=== PATIENT | female | born 1990 | race Caucasian/White ===

== ENCOUNTER 2024-06-21 13:51 | Emergency (ER) | payer MEDICARE, MEDICAID ==
[~2024-06-21] VITALS: Ht 162.6 cm; Wt 57.0 kg
[2024-06-21 13:57] VITALS: PULSE 94; RESP 15; O2SAT 96
[2024-06-21] MEDS ORDERED: DIF150T PO (14:31)
[2024-06-21] MEDS ORDERED: CLOT30CR19 TOP (14:31)
== END 2024-06-21 14:38 | disposition home or self-care (01) ==
LOC: ER 13:52
DX: B35.6 Tinea cruris (principal); B37.31 Acute candidiasis of vulva and vagina; Z88.5 Allergy status to narcotic agent; Z88.8 Allergy status to other drugs, medicaments and biological substances
CPT/HCPCS: 99283

== ENCOUNTER 2024-09-11 09:27 | Emergency (ER) | payer MEDICARE, MEDICAID ==
[~2024-09-11] VITALS: Ht 157.5 cm; Wt 52.0 kg
[~2024-09-11 09:27] MED LIST: CLOT30CR19 TOP
--- NOTE | 2024-09-11 10:27 | RADIOLOGY REPORT ---
CLINICAL INDICATION: Antalgic gait TECHNIQUE: 3 radiographic views of the right ankle were obtained. Comparison: None FINDINGS/IMPRESSION: There is no evidence of acute fracture or dislocation. The visualized joint space is well maintained. The alignment is anatomical. There is no radiopaque foreign body.
--- NOTE | 2024-09-11 10:28 | RADIOLOGY REPORT ---
CLINICAL INDICATION: FOOT PAIN TECHNIQUE: 3 radiographic views of the right foot were obtained. Comparison: None FINDINGS/IMPRESSION: There is no evidence of acute fracture or dislocation. The visualized joint space is well maintained. The alignment is anatomical. There is no radiopaque foreign body.
[2024-09-11] MEDS: acetaminophen 325mg/10.15ml oral unit dose solution PO ONE (10:43)
[2024-09-11] MEDS ORDERED: IBUP-1984 PO (11:09)
--- NOTE | 2024-09-11 11:11 | Physician Documentation ---
History of Present Illness General Chief Complaint: Ankle pain Stated Complaint: ANKLE PAIN Time Seen by MD: 09:37 History of Present Illness Initial Comments Kaya is an autistic 34-year-old female brought in by staff for evaluation of a suspected right ankle foot injury. She has was noted to have an antalgic gait and a little distress with mild swelling. No witnessed injury. Medication Reconciliation Allergies: Coded Allergies: clonidine (Verified Allergy, Unknown, 06/21/24) hydrocodone (Verified Allergy, Unknown, 06/21/24) levetiracetam (Verified Allergy, Unknown, 06/21/24) Scheduled Clotrimazole (Clotrimazole), 1 APPLIC TOP Q12H Ibuprofen* (Motrin*), 400 MG PO Q8H Review of Systems Constitutional: Denies: fever Physical Exam Physical Exam Vital Signs: RN Vital Signs have been reviewed: Yes, Heart Rate: 84, Respir atory Rate: 17, Pulse Oximetry: 96, Weight: 52.000 Oxygen Flow Rate: 0 General Appearance: alert, WD/WN, mild distress Head: normal inspection Face: normal inspection Pupils/EOM/Fundus: PERRLA Nose: normal inspection Respiratory: no respiratory distress Chest: accessory muscle use Cardiovascular: regular rate, rhythm Extremities: edema; No: calf tenderness Neurologic: oriented x4, stone polisher II-XII nml as tested Motor / Sensory: no motor deficit Psychiatric: normal mood/affect Skin: normal color, warm/dry Progress Results/Orders Results/Orders Orders - NAHID EDWARD PAC Ankle, Complete(3vw Min) (09/11/24 ) Completed Orders - NAHID EDWARD PAC Ankle, Complete(3vw Min) (09/11/24 ) Acetaminophen Oral Solution (Tylenol, Ch (09/11/24 09:55) Vital Signs 09/11/24 09/11/24 09:32 11:47 Pulse 84 85 Resp 17 15 B/P (MAP) Pulse Ox 96 97 O2 Flow Rate 0 Medical Decision Making Differential Diagnosis Patti is a 34-year-old female with autism and believed to injured her right ankle. There is mild swelling. She had screening x-rays obtained of the ankle and foot which are reassuring for no fracture or dislocations. Recommendations are for rice therapy. Rest ice compression elevation. Repeated x-rays in 7-10 days reasonable. No clinical suspicion for migratory arthralgias, gout or septic arthritis Safely discharged in the emergency department. Departure Disposition: HOME / SELF CARE / HOMELESS Impression: Primary Impression: Sprain of ankle Qualified Codes: S93.401A - Sprain of unspecified ligament of right ankle, initial encounter Condition: Stable Discharge Instructions: Ankle Pain Additional Instructions: Today in the emergency department x-rays were obtained of the right ankle and right foot which were reassuring for no fracture or dislocation. Please provide Tylenol and/or ibuprofen consider applying an ankle brace and events Kaya's activities as tolerated. Make follow up appointment with the physician and/or return if symptoms worsen. Thank you for visiting emergency department [facility]. Referrals: NO PRIMARY CARE PROVIDER (PCP) Prescriptions Ibuprofen* (Motrin*) 400 Mg Tablet 400 MG PO Q8H, #20 TAB Prov: NAHID EDWARD 09/11/24 Education Educated: Patient Educated regarding: diagnosis, treatment Signature Scribe Signature: . Attestation: . NAHID EDWARD Sep 11, 2024 11:11
[2024-09-11 11:47] VITALS: PULSE 85; RESP 15; O2SAT 97
== END 2024-09-11 11:45 | disposition home or self-care (01) ==
LOC: ER 09:27
DX: S93.401A Sprain of unspecified ligament of right ankle, initial encounter (principal); Z88.5 Allergy status to narcotic agent; X58.XXXA Exposure to other specified factors, initial encounter; Y93.89 Activity, other specified; Y92.89 Other specified places as the place of occurrence of the external cause; Y99.8 Other external cause status
CPT/HCPCS: 73610; 73630; 99284

== ENCOUNTER 2024-11-14 22:55 | Emergency (ER) | payer MEDICARE, MEDICAID ==
[~2024-11-14] VITALS: Ht 162.6 cm; Wt 54.5 kg
[2024-11-14 23:02] VITALS: BP 144/97; TEMP 98
[2024-11-14] MEDS: diazepam inj 5 MG/ML inj. IV ONE (23:10)
--- NOTE | 2024-11-14 23:12 | Physician Documentation ---
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 The patient does not provide a history but her care take her states that the patient has these periodic episodes where she stops taking her medications. Over the past couple days she has stopped taking her seizure medications. She is on Keppra, Depakote and a couple of other medications. Caregiver states that her neurologist recently changed some of her medications that ever since they get this it has worsened some of her symptoms. No other history is available. Medication Reconciliation Allergies: Coded Allergies: clonidine (Verified Allergy, Unknown, 06/21/24) hydrocodone (Verified Allergy, Unknown, 06/21/24) Scheduled Clotrimazole (Clotrimazole), 1 APPLIC TOP Q12H Physical Exam Vital Signs: Temperature: 98.0, Heart Rate: 94, Respiratory Rate: 20, BP: 144/97, Pulse Oximetry: 97, Weight: 54.500 Oxygen Flow Rate: 0 Physical Exam I have reviewed the triage vitals. CONST: Well developed and well nourished. In no acute distress, developmentally delayed. HENT: Head Atraumatic EYES: Pupils are equal, round and reactive to light. Normal conjunctiva NECK: Normal range of motion. Supple. CARDIO: Normal rate and regular rhythm. No murmurs, rubs, or gallops. S1, S2. PULM/CHEST: No respiratory distress. Lungs clear to auscultation. No wheeze ABD: Soft and nontender. Nondistended. Bowel sounds normal. No guarding. : Exam deferred MSK: No edema. No deformity. NEURO: Awake, alert, nonverbal but occasionally screams SKIN: Warm and dry. PSYCH: Developmentally delayed Progress Results/Orders Results/Orders Orders - VASILIY RUBIN MD Cbc/Diff (11/14/24 23:17) Urinalysis, Cult If Indicated (11/14/24 23:17) Levetiracetam, S (11/14/24 23:17) Man Diff (11/14/24 00:03) Pathology Review (11/14/24 00:03) Topiramate (11/14/24 00:03) Completed Orders - VASILIY RUBIN MD Haloperidol Lact. (Haldol) (11/14/24 23:10) Diazepam Inj (Valium Inj) (11/14/24 23:10) Diphenhydramine Inj (Benadryl Inj.) (11/14/24 23:10) CMP (11/14/24 23:17) Valproate (11/14/24 23:17) Levetiracetam Inj (Keppra Inj) (11/14/24 23:25) Levetiracetam-[id number]/100ml (Levetira (11/14/24 23:50) Lorazepam Inj (Ativan Inj) (11/15/24 00:00) Valproate Sod Inj (Depacon Inj) (11/15/24 01:40) Medications Received in ER Medications (Trade) Dose Ordered Sig/Yariel Route PRN Reason Start Time Stop Time Status Last Admin Dose Admin (Haldol) 10 mg ONCE ONCE IM 11/14/24 23:10 11/14/24 23:13 DC 11/14/24 23:23 10 MG (Benadryl inj.) 25 mg ONCE ONCE IM 11/14/24 23:10 11/14/24 23:11 DC 11/14/24 23:22 25 MG Levetiracetam 100 ml @ 400 mls/hr ONCE ONCE IV 11/14/24 23:50 11/15/24 00:04 DC 11/15/24 00:08 400 MLS/HR (Ativan inj) 2 mg ONCE ONCE IM 11/15/24 00:00 11/15/24 00:01 DC 11/15/24 00:05 2 MG Valproic Acid 1000 mg/Sodium Chloride 60 ml @ 60 mls/hr ONCE ONCE IV 11/15/24 01:40 11/15/24 02:39 DC 11/15/24 01:40 60 MLS/HR Vital Signs 11/14/24 11/15/24 23:02 03:55 Temp 98.0 Pulse 94 72 Resp 20 22 B/P (MAP) 144/97 Pulse Ox 97 97 O2 Flow Rate 0 0 Laboratory Tests Test 11/14/24 00:03 White Blood Count 11.7 H Red Blood Count 3.83 L Hemoglobin 12.8 Hematocrit 37.7 Mean Corpuscular Volume 98.4 H Mean Corpuscular Hemoglobin 33.4 H Mean Corpuscular Hemoglobin Concent 34.0 Red Cell Distribution Width 14.7 H Platelet Count 162 Mean Platelet Volume 10.2 Neutrophils (%) (Auto) 32.5 L Lymphocytes (%) (Auto) 56.9 H Monocytes (%) (Auto) 9.0 Eosinophils (%) (Auto) 1.2 Basophils (%) (Auto) 0.4 Neutrophils # (Auto) 3.8 Lymphocytes # (Auto) 6.6 H Monocytes # (Auto) 1.0 H Eosinophils # (Auto) 0.1 Basophils # (Auto) 0.1 CBC Comment Differential Total Cells Counted 100 Neutrophils % (Manual) 32.0 L Lymphocytes % (Manual) 59.0 H Monocytes % (Manual) 8.0 Eosinophils % (Manual) 1.0 Platelet Estimate Normal Red Blood Cell Morphology Perf Basophilic Stippling Macrocytosis 1+ Sodium Level 140 Potassium Level 3.3 L Chloride Level 106 Carbon Dioxide Level 23.3 L Anion Gap 11 Blood Urea Nitrogen 20 H Creatinine 0.85 Estimated GFR/1.73 m2 77 BUN/Creatinine Ratio 23.5 H Glucose Level 118 H Calcium Level 9.0 Total Bilirubin 0.3 Aspartate Amino Transf (AST/SGOT) 19 Alanine Aminotransferase (ALT/SGPT) 15 Alkaline Phosphatase 70 Total Protein 7.5 Albumin 3.2 L Globulin 4.3 Albumin/Globulin Ratio 0.7 L Chemistry Comments Valproic Acid (Depakene) Level 40 L Medical Decision Making Additional Comment 34-year-old female who is developmentally delayed presenting for a seizure due to noncompliance with her medications. Patient was uncooperative initially in required sedation with IM Haldol and Benadryl. She did have one seizure here in the ED as well and required 2 mg of Ativan IM. Afterwards she remained stable and slept. A lab workup was grossly unremarkable aside from a low level of valproic acid. Keppra and Topamax levels were also drawn. Patient was given 2 g of IV Keppra as well as 1 g of valproic acid. Patient was monitored in the ED for several hours and remained stable. On reassessment the patient was stable and her vitals are normal. I discussed this with her hall cleaner in emphasized the importance of ensuring that the patient takes her medications. Patient does have behavioral outburst where she stops taking her medications and this is understandable. In any case the patient is stable and safe for discharge back home. Advised to have the patient follow up with her neurologist and primary care physician in the next 1-2 weeks. Return to the ED with any acutely worsening symptoms. Departure Disposition: 01 HOME / SELF CARE / HOMELESS Impression: Primary Impression: Epilepsy Additional Impression: Seizure Condition: Improved Discharge Instructions: Seizure, Adult Additional Instructions: Please ensure the patient takes all of her medications as prescribed. Follow up with neurologist and with the primary care physician. Return to the ED with any acutely worsening symptoms. Referrals: NO PRIMARY CARE PROVIDER (PCP) Signature Scribe Signature: 1 Attestation: 1 VASILIY RUBIN MD Nov 14, 2024 23:12
[2024-11-14] MEDS: haloperidol lactate 5mg/ml inj IM ONE (23:23)
[2024-11-15] MEDS: levetiracetam-NACL1000mg/100ml 100 ML IV ONE (00:08)
[2024-11-15 00:14] LABS: MEAN PLATELET VOLUME 10.2 FL (7.4-10.4); RED CELL DISTRIBUTION WIDTH 14.7 % (11.5-14.5)
[2024-11-15] MEDS: levetiracetam inj 1,000 MG in normal saline 100ml IV soln 100 ML IV ONE (00:21)
[2024-11-15 00:23] LABS: CREATININE 0.85 MG/DL (0.40-0.90); TOTAL CARBON DIOXIDE 23.3 MMOL/L (24-32); VALPROATE 40 UG/ML (50-100); eCRCL 81 ML/MIN; eGFR 77 ML/MIN
[2024-11-15 00:57] LABS: EOSINOPHILS % (MANUAL) 1.0 % (0-6); LYMPHOCYTES % (MANUAL) 59.0 % (21-51); MONOCYTES % (MANUAL) 8.0 % (2-12); NEUTROPHILS % (MANUAL) 32.0 % (42-75); PLATELET ESTIMATE NORMAL
[2024-11-15] MEDS: valproate sod inj 1,000 MG in normal saline 50ml IV soln 50 ML IV ONE (01:40)
[2024-11-15 03:55] VITALS: PULSE 72; RESP 22; O2SAT 97
[2024-11-18 05:10] LABS: LEVETIRACETAM, S <2.0 ug/mL (10.0-40.0)
[2024-11-19 06:25] LABS: TOPIRAMATE 2.5 ug/mL (2.0-25.0)
== END 2024-11-15 04:41 | disposition home or self-care (01) ==
LOC: ER 22:55
DX: G40.909 Epilepsy, unspecified, not intractable, without status epilepticus (principal); Z88.5 Allergy status to narcotic agent; Z79.899 Other long term (current) drug therapy
CPT/HCPCS: 36415; 80053; 80164; 80177; 80201; 85007; 85025; 96365; 96372; 96375; 99284; J1200; J1630; J1953; J2060; J3490